=== PATIENT | male | born 1930 | race Hispanic/Latino ===

== ENCOUNTER 2017-11-23 20:34 | Emergency (ER) | payer MEDICARE, BC, OTHER ==
[2017-11-23 20:34] VITALS: PULSE 141
[2017-11-23 20:46] VITALS: BMI 33.0
[2017-11-23 20:49] VITALS: RESP 18
[2017-11-23 21:02] VITALS: TEMP 98.1
--- NOTE | 2017-11-23 22:17 | ED PDOC ---
Arrival/HPI <Je Catalan - Last Filed: 11/23/17 22:56> - General Historian: Patient, Family <Penny Samano - Last Filed: 11/24/17 01:40> - General Chief Complaint: Lower Extremity Problem/Injury Time Seen by Provider: 11/23/17 20:45 - History of Present Illness Narrative History of Present Illness (Text): 11/23/17 22:12 87yo male with past medical history of hypertension, Diabetes, CAD, BPH bib family members for sharp right sided lower back pain x one week. The son states pain became increasingly worse. Pain is described as intermittent and spasms. Pain radiates to his posterior right thigh. Notes that he has been taking Tylenol for the pain with some relieve. Pain is worse with movement. States he has been ambulating with a cane, since the pain started. He denies abdominal pain ripping/tearing upper back pain, urinary/fecal incontinence, saddle anesthesia, focal weakness, urinary symptoms. (Penny Samano A) Past Medical History - Provider Review Nursing Documentation Reviewed: Yes - Cardiac Hx HI: Yes Hx Hypertension: Yes Hx Pacemaker: No Other/Comment: aortic anuerysm - Neurological Hx Paralysis: No - Endocrine/Metabolic Hx Endocrine Disorders: Yes Other/Comment: Borderline Diabetes - Hematological/Oncological Hx Blood Transfusions: No Hx Blood Transfusion Reaction: No - Musculoskeletal/Rheumatological Hx Musculoskeletal Disorders: Yes ( OSTEO LEFT ANKLE YEARS AGO) Hx Osteomyelitis: Yes (L ankle) - Psychiatric Hx Emotional Abuse: No Hx Physical Abuse: No Hx Substance Use: No - Surgical History Hx Orthopedic Surgery: Yes Other/Comment: Al in one of the hips, unsure which one. - Anesthesia Hx Anesthesia: Yes Hx Anesthesia Reactions: No Hx Malignant Hyperthermia: No - Suicidal Assessment Feels Threatened In Home Enviroment: No <Penny Samano A - Last Filed: 11/24/17 01:40> Family/Social History - Physician Review Nursing Documentation Reviewed: Yes Family/Social History: Unknown Family HX Smoking Status: Former Smoker Hx Alcohol Use: No Hx Substance Use: No <Penny Samano A - Last Filed: 11/24/17 01:40> Allergies/Home Meds <Je Catalan - Last Filed: 11/23/17 22:56> <Penny Samano A - Last Filed: 11/24/17 01:40> Allergies/Adverse Reactions: Allergies No Known Allergies Allergy (Verified 11/23/17 20:53) Home Medications: Home Meds Medication Instructions Recorded Confirmed Aspirin [Aspir 81] 81 mg PO DAILY 05/25/12 11/23/17 Atorvastatin Calcium [Lipitor] 10 mg PO DAILY 05/25/12 11/23/17 Bumetanide [Bumex] 1 mg PO DAILY 05/25/12 11/23/17 Metoprolol Succinate [Toprol XL] 100 mg PO DAILY 05/25/12 11/23/17 ALPRAZolam [Xanax] 0.25 mg PO PRN PRN 11/23/17 11/23/17 Olmesartan Medoxomil [Benicar] 40 mg PO DAILY 11/23/17 11/23/17 Qlohy-0-Avwr Ethyl Esters 1 GM 1 gm PO BID 11/23/17 11/23/17 [Lovaza] SITagliptin [Januvia] 50 mg PO DAILY 11/23/17 11/23/17 Tamsulosin [Flomax] 0.4 mg PO DAILY 11/23/17 11/23/17 Vit C/E/Zn/Coppr/Lutein/Zeaxan 1 each PO DAILY 11/23/17 11/23/17 [Preservision Areds 2 Softgel] amLODIPine [Norvasc] 5 mg PO DAILY 11/23/17 11/23/17 Review of Systems - Physician Review All systems were reviewed & negative as marked: Yes - Review of Systems Constitutional: Normal Eyes: Normal ENT: Normal Respiratory: Normal Cardiovascular: Normal Gastrointestinal: Normal Genitourinary Male: Normal Musculoskeletal: Back Pain Skin: Normal Neurological: Normal Endocrine: Normal Hemo/Lymphatic: Normal Psychiatric: Normal <Diru,Happiness A - Last Filed: 11/24/17 01:40> Physical Exam Vital Signs Reviewed: Yes Temperature: Afebrile Blood Pressure: Normal Pulse: Regular Respiratory Rate: Normal Appearance: Positive for: Well-Appearing, Non-Toxic, Comfortable Pain Distress: None Mental Status: Positive for: Alert and Oriented X 3 - Systems Exam Head: Present: Atraumatic, Normocephalic Pupils: Present: PERRL Extroacular Muscles: Present: EOMI Conjunctiva: Present: Normal Mouth: Present: Moist Mucous Membranes Neck: Present: Normal Range of Motion Respiratory/Chest: Present: Clear to Auscultation, Good Air Exchange. No: Respiratory Distress, Accessory Muscle Use Cardiovascular: Present: Regular Rate and Rhythm, Normal S1, S2. No: Murmurs Abdomen: No: Tenderness, Distention, Peritoneal Signs Back: Present: Paraspinal Tenderness (Right sided paralumbar tenderness). No: Midline Tenderness, Pain with Leg Raise Upper Extremity: Present: Normal Inspection. No: Cyanosis, Edema Lower Extremity: Present: Normal Inspection. No: Edema Neurological: Present: GCS=15, CN II-XII Intact, Speech Normal Skin: Present: Warm, Dry, Normal Color. No: Rashes Psychiatric: Present: Alert, Oriented x 3, Normal Insight, Normal Concentration <Penny Samano A - Last Filed: 11/24/17 01:40> Vital Signs Temp Pulse Resp BP Pulse Ox 11/23/17 23:51 78 18 142/89 100 11/23/17 20:57 98.1 F 11/23/17 20:46 73 18 165/73 H 97 Medical Decision Making <Je Catalan - Last Filed: 11/23/17 22:56> <JazmyneHappiness A - Last Filed: 11/24/17 01:40> ED Course and Treatment: 11/24/17 01:39 PT was neurologically intact in Emergency department. His pain imrpoved in Emergency department with medication. His pain was reproducible in Emergency department. Urinalysis was negative. LS CT IMPRESSION: 1. There is slight retrolisthesis of L2 on L3. There is no acute fracture within the lumbar spine. 2. Degenerative changes are identified diffusely within the lumbar and visualized lower thoracic spine, as described above. 3. There is moderate narrowing of the thecal sac at L2-3, with mild narrowing of the thecal sac at L3-4. There is minimal narrowing of the ventral thecal sac at L5-S1. These findings can be further evaluated with a nonemergent MRI. 4. Neural foraminal narrowing is identified diffusely within the lumbar spine , as detailed above. 5. There are areas of aneurysmal dilatation of the infrarenal abdominal aorta , with a maximal diameter of 3.8 cm. 6. The bladder is incompletely visualized, but appears distended. Clinical correlation is recommended. 7. Additional CT findings described above. Result was DW both patient and the family members. He leaves with his family members. He was DC home with Tramadol, lidoderm patch and valium and referred to his PMD. (Penny Samano) - Lab Interpretations Lab Results: Lab Results 11/23/17 22:45: Urine Color Yellow, Urine Appearance Clear, Urine pH 6.0, Ur Specific [place] 1.010, Urine Protein Negative, Urine Glucose (UA) Negative, Urine Ketones Negative, Urine Blood Negative, Urine Nitrate Negative, Urine Bilirubin Negative, Urine Urobilinogen 0.2, Ur Leukocyte Esterase Negative - RAD Interpretation Radiology Orders: 11/23/17 21:14 LUMBAR SPINE W/O CONTRAST [CT] Stat - Medication Orders Current Medication Orders: Discontinued Medications Diazepam (Valium) 2 mg PO ONCE ONE PRN Reason: Protocol Stop: 11/23/17 21:17 Last Admin: 11/23/17 21:22 Dose: 2 mg Oxycodone/Acetaminophen (Percocet 5/325 Mg Tab) 1 tab PO STAT STA Stop: 11/23/17 22:33 Last Admin: 11/23/17 22:38 Dose: 1 tab MAR Pain Assessment Document 11/23/17 22:38 CNR (Rec: 11/23/17 22:38 C[address] [id number]) Pain Reassessment Is this a pain reassessment? Yes - PA / HAND OR MACHINE PASTER / Resident Statement / has reviewed & agrees with the documentation as recorded. / has examined the patient and agrees with the treatment plan. <Je Catalan - Last Filed: 11/23/17 22:56> Disposition/Present on Arrival <Je Catalan - Last Filed: 11/23/17 22:56> - Present on Arrival Any Indicators Present on Arrival: No History of DVT/PE: No History of Uncontrolled Diabetes: No Urinary Catheter: No History of Decub. Ulcer: No History Surgical Site Infection Following: None - Disposition Have Diagnosis and Disposition been Completed?: Yes Disposition Time: 23:20 Patient Plan: Discharge <Penny Samano - Last Filed: 11/24/17 01:40> - Disposition Diagnosis: Back pain, Radiculopathy Disposition: HOME/ ROUTINE Condition: STABLE Discharge Instructions (ExitCare): Radiculopathy (DC) Additional Instructions: Follow up with your doctor Return to Emergency department for any new symptoms Prescriptions: diaZEpam [Valium] 2 mg PO DAILY #6 tab Lidocaine 5% [Lidoderm] 1 ea TD BID #10 patch traMADol [Ultram] 50 mg PO TID #10 tab Referrals: Prashant Bull DO [Primary Care Provider] - Follow up with primary Forms: [employer] ([place]oz[place]ican)
--- NOTE | 2017-11-23 22:24 | CT ---
EXAM: CT Lumbar Spine Without Intravenous Contrast EXAM DATE/TIME: 11/23/2017 9:14 PM CLINICAL HISTORY: The patient age is 87 years old and is male; Pain; Low back pain; Additional info: Lower back pain Facility exam id and description: Ct lumbs lumbar spine w/o contrast TECHNIQUE: Axial computed tomography images of the lumbar spine without intravenous contrast. All CT scans at this facility use one or more dose reduction techniques, viz.: automated exposure control; ma/kV adjustment per patient size (including targeted exams where dose is matched to indication; i.e. head); or iterative reconstruction technique. Coronal and sagittal reformatted images were created and reviewed. COMPARISON: No relevant prior studies available. FINDINGS: Vertebrae: There is slight retrolisthesis of L2 on L3. Osteopenia. There is no acute fracture within the lumbar spine. The lumbar vertebral bodies are normal in height. There is no significant scoliosis of the lumbar spine. Discs/spinal canal/neural foramina: Degenerative disc bulge/osteophyte complexes are identified diffusely within the lumbar and visualized lower thoracic spine. Flowing osteophytes or ankylosis is seen within the lower thoracic spine anteriorly. At L1-2, there is no significant narrowing of the thecal sac. Moderate right and mild left neural foraminal narrowing is visualized. At L2-3, there is moderate narrowing of the thecal sac. Moderate bilateral neural foramina is identified. At L3-4, there is mild narrowing of the thecal sac. Mild bilateral neural foraminal narrowing is identified. There is bilateral facet arthropathy. At L4-5, there is bilateral facet arthropathy with mild disc bulging. There is effacement of the anterior epidural fat, without significant narrowing of the thecal sac. There is narrowing of both lateral recesses. Moderate right and mild left neural foraminal narrowing is visualized. At L5-S1, there is bilateral facet arthropathy with a posterior disc bulge/osteophyte complex causing effacement of the anterior epidural fat and minimal narrowing of the ventral thecal sac. There is narrowing of both lateral raise recesses. Moderate bilateral neural foramina is identified. Vasculature: There are areas of aneurysmal dilatation of the infrarenal abdominal aorta, with a maximal diameter of 3.8 cm. There is atherosclerotic calcification of the abdominal aorta. Spleen: There is a 1.7 x 0.8 cm nonspecific focus of hypodensity posterior to the spleen. A splenule is seen. Adrenals: There is nonspecific thickening of the left adrenal gland. Stomach and bowel: Sigmoid diverticula are visualized. Bladder: The bladder is incompletely visualized, but appears distended. IMPRESSION: 1. There is slight retrolisthesis of L2 on L3. There is no acute fracture within the lumbar spine. 2. Degenerative changes are identified diffusely within the lumbar and visualized lower thoracic spine, as described above. 3. There is moderate narrowing of the thecal sac at L2-3, with mild narrowing of the thecal sac at L3-4. There is minimal narrowing of the ventral thecal sac at L5-S1. These findings can be further evaluated with a nonemergent MRI. 4. Neural foraminal narrowing is identified diffusely within the lumbar spine, as detailed above. 5. There are areas of aneurysmal dilatation of the infrarenal abdominal aorta, with a maximal diameter of 3.8 cm. 6. The bladder is incompletely visualized, but appears distended. Clinical correlation is recommended. 7. Additional CT findings described above.
[2017-11-23] MEDS: Oxycodone/Acetaminophen 5/325 mg Tab PO STA (22:38)
[2017-11-23 22:57] LABS: URINE BILIRUBIN NEGATIVE (NEGATIVE); URINE BLOOD NEGATIVE (NEGATIVE); URINE GLUCOSE (UA) NEGATIVE (NEGATIVE); URINE LEUKOCYTE ESTERASE NEGATIVE Leu/uL (NEGATIVE); URINE PROTEIN NEGATIVE mg/dL (<30 mg/dL); URINE UROBILINOGEN 0.2 E.U./dL (<1 E.U./dL)
[2017-11-23 23:05] LABS: URINE APPEARANCE CLEAR (CLEAR); URINE COLOR YELLOW (YELLOW)
[2017-11-23 23:53] VITALS: BP 142/89; PULSE 78; O2SAT 100
== END 2017-11-23 23:51 | disposition home or self-care (01) ==
LOC: ED 20:34
DX: M54.16 Radiculopathy, lumbar region (principal); M54.5 Low back pain

== ENCOUNTER 2018-03-31 07:16 | Emergency (ER) | payer MEDICARE, BC ==
[2018-03-31 07:16] VITALS: PULSE 141; BMI 33.0
[2018-03-31] MEDS ORDERED: Sodium Chloride 0.9% 500 ML IV SCH (07:45)
[2018-03-31] MEDS ORDERED: Famotidine 20mg/50ml 20 MG/50 ML BAG IVPB STA (07:45)
[2018-03-31 07:51] LABS: BASO # 0.02 K/mm3 (0.0-2.0); BASO % 0.4 % (0.0-3.0); EOS # 0.1 (0.0-0.7); EOS % 2.4 % (1.5-5.0); GRAN # 3.61 (1.4-6.5); GRAN % 72.5 % (50.0-68.0); HEMOGLOBIN 14.3 g/dL (14.0-18.0); LYMPH # 0.9 (1.2-3.4); LYMPH % 18.1 % (22.0-35.0); MEAN CELL VOLUME 91.2 fl (80.0-105.0); MEAN CORPUSCULAR HEMOGLOBIN 30.7 pg (25.0-35.0); MEAN CORPUSCULAR HGB CONC 33.6 g/dl (31.0-37.0); MONO # 0.3 (0.1-0.6); MONO % 6.6 % (1.0-6.0); RBC 4.66 10^6/uL (3.5-6.1); RED CELL DISTRIBUTION WIDTH 13.6 % (11.5-14.5)
[2018-03-31 08:00] LABS: INR 1.02; PARTIAL THROMBOPLASTIN TIME 27.8 Seconds (25.1-36.5); PROTHROMBIN TIME 11.7 SECONDS (9.4-12.5)
[2018-03-31 08:01] LABS: CALCIUM 9.5 mg/dL (8.4-10.5)
[2018-03-31 08:12] LABS: TROPONIN I 0.02 ng/mL
[2018-03-31 08:24] LABS: ALB/GLOB RATIO 1.3 (1.1-1.8); BILIRUBIN,DIRECT 0.2 mg/dL (0.0-0.4)
--- NOTE | 2018-03-31 08:24 | ED PDOC ---
Arrival/HPI - General Chief Complaint: Abdominal Pain Time Seen by Provider: 03/31/18 07:23 Historian: Patient, Parent (Daughters) - Critical Care Critical Care Minutes: 30 minutes - History of Present Illness Narrative History of Present Illness (Text): 03/31/18 08:08 88 year old male, whose past medical history includes hypertension, Diabetes, CAD, GERD, and Abdominal Aortic Aneurysm, presents to the emergency department, accompanied by daughters, with chest discomfort, for more than 1 hour. Patient states its feels like "a knot in my stomach". Patient informs of associated shortness of breath. Patient also informs of some mid-sternal chest discomfort, without any radiation, and lightheadedness. Patient's daughters inform of his AAA, stating it is being monitored, but no plans of surgical repair due to age. Patient denies any fevers, chills, cough, nausea, vomiting, diarrhea, or any other complaint. PMD: Dr. Prashant Bull Holiday Detector Operator: Dr. Eleanor Valencia ([place]) Time/Duration: 1-3 hours Context: Home Past Medical History - Provider Review Nursing Documentation Reviewed: Yes - Infectious Disease Hx of Infectious Diseases: None - Cardiac Hx VA: Yes Hx Hypertension: Yes Hx Pacemaker: No Other/Comment: aortic anuerysm - Neurological Hx Paralysis: No - Endocrine/Metabolic Hx Endocrine Disorders: Yes Other/Comment: Borderline Diabetes - Hematological/Oncological Hx Blood Transfusions: No Hx Blood Transfusion Reaction: No - Musculoskeletal/Rheumatological Hx Musculoskeletal Disorders: Yes ( OSTEO LEFT ANKLE YEARS AGO) Hx Osteomyelitis: Yes (L ankle) - Psychiatric Hx Emotional Abuse: No Hx Physical Abuse: No Hx Substance Use: No - Surgical History Hx Orthopedic Surgery: Yes Other/Comment: Al in one of the hips, unsure which one. - Anesthesia Hx Anesthesia: Yes Hx Anesthesia Reactions: No Hx Malignant Hyperthermia: No - Suicidal Assessment Feels Threatened In Home Enviroment: No Family/Social History - Physician Review Nursing Documentation Reviewed: Yes Family/Social History: No Known Family HX Smoking Status: Former Smoker Hx Alcohol Use: No Hx Substance Use: No Allergies/Home Meds Allergies/Adverse Reactions: Allergies No Known Allergies Allergy (Verified 11/23/17 20:53) Home Medications: Home Meds Medication Instructions Recorded Confirmed Aspirin [Aspir 81] 81 mg PO DAILY 05/25/12 11/23/17 Atorvastatin Calcium [Lipitor] 10 mg PO DAILY 05/25/12 11/23/17 Bumetanide [Bumex] 1 mg PO DAILY 05/25/12 11/23/17 Metoprolol Succinate XL [Toprol XL] 100 mg PO DAILY 05/25/12 11/23/17 ALPRAZolam [Xanax] 0.25 mg PO PRN PRN 11/23/17 11/23/17 Olmesartan Medoxomil [Benicar] 40 mg PO DAILY 11/23/17 11/23/17 Zcaxv-0-Ciyc Ethyl Esters 1 GM 1 gm PO BID 11/23/17 11/23/17 [Lovaza] SITagliptin [Januvia] 50 mg PO DAILY 11/23/17 11/23/17 Tamsulosin [Flomax] 0.4 mg PO DAILY 11/23/17 11/23/17 Vit C/E/Zn/Coppr/Lutein/Zeaxan 1 each PO DAILY 11/23/17 11/23/17 [Preservision Areds 2 Softgel] amLODIPine [Norvasc] 5 mg PO DAILY 11/23/17 11/23/17 Review of Systems - Physician Review All systems were reviewed & negative as marked: Yes - Review of Systems Constitutional: absent: Fevers, Night Sweats Respiratory: absent: Cough Cardiovascular: Chest Pain Gastrointestinal: Abdominal Pain. absent: Diarrhea, Nausea, Vomiting Neurological: Dizziness Physical Exam Vital Signs Reviewed: Yes Vital Signs Temp Pulse Resp BP Pulse Ox 03/31/18 07:30 97.5 F L 113 H 20 141/99 H 97 Temperature: Hypothermic Blood Pressure: Hypertensive Pulse: Tachycardic Respiratory Rate: Normal Appearance: Positive for: Well-Appearing, Non-Toxic, Comfortable Pain Distress: None Mental Status: Positive for: Alert and Oriented X 3 - Systems Exam Respiratory/Chest: Present: Clear to Auscultation Cardiovascular: Present: Tachycardic Abdomen: No: Tenderness Lower Extremity: Present: Edema Medical Decision Making ED Course and Treatment: 03/31/18 08:29 Impression: 88 year old male presents with chest discomfort. Differential Diagnosis included but are not limited to: Abdominal Aortic Aneurysm Dissection Gastritis Hiatal Hernia Atypical Acute Coronary Syndrome Plan: -- EKG -- Chest X-ray -- Pepcid -- Labs -- CTA disection protocool -- Urinalysis -- Reassess and disposition Prior Visits: Notes and results from previous visits were reviewed. Progress Notes: Previous radiology reports, performed at [facility]: US of abdominal Aorta on 11/04/17, shows: Limited examination. 3.4 cm distal abdominal aortic aneurysm. US of Urinary Bladder on 08/15/17, shows: 113 cc postvoid jets were not well visualized. Clinical correlation. Aneurysmal dilation of the mid abdominal aorta which appears increased in size since the prior study. Clinical correlation. Transthoracic Echocardiogram on 11/04/17, shows: 1. Normal LV systolic function. 2. LVH with diastolic dysfunction. 3. Normal chamber size. 4. Moderate TR. 03/31/18 10:10 CTA reviewed by radiologist, shows: Two regions of thrombosed short-segment dissections evident with displaced calcified intima. Infrarenal abdominal aortic aneurysm. Large hiatal hernia with herniation of the stomach above the diaphragm. 0.8 x 2.0 cm posterior fat containing exophytic lesion splenic-possibly lipoma or angiomyolipoma of the spleen. High-density material within the gallbladder, possibly stones or sludge. Numerous thyroid hypodense nodules Additional findings as above. 03/31/18 10:16 Chest X-ray reviewed by radiologist, shows: No active disease. 03/31/18 11:03 Case was discussed with Dr. Bermudez, vascular surgeon programmer analyst consultant at [facility]. Reviewed in detail CT results with Dr. Bermudez who believes perhaps this is a chronic finding of an aortic dissection/aneursym. He accepts patient. Dr. Lewis is covering for patient's technical sales consultant Dr. Valencia, who agrees with plan of transfer. Discussed with family plan of transfer, and transfer form completed. Patient is currently asymptomatic 03/31/18 11:[address] Nikko Mata, ED Physician at [facility] who received ED to ED hand-off. A copy of the CD was requested and will be prepared for transfer. - Lab Interpretations Lab Results: 03/31/18 07:28 03/31/18 07:28 Lab Results 03/31/18 07:28: PT 11.7, INR 1.02, APTT 27.8, D-Dimer, Quantitative 414 H 03/31/18 07:28: Sodium 142, Potassium 3.7, Chloride 99, Carbon Dioxide 35 H, Anion Gap 12, BUN 29 H, Creatinine 1.4, Est GFR ( Amer) 58, Est GFR (Non- Af Amer) 48, Random Glucose 256 H, Calcium 9.5, Magnesium 1.8, Lactate Dehydrogenase 575, Total Creatine Kinase 53, Troponin I Pending, NT-Pro-B Natriuret Pep Pending 03/31/18 07:28: WBC 5.0, RBC 4.66, Hgb 14.3, Hct 42.5, MCV 91.2, MCH 30.7, MCHC 33.6, RDW 13.6, Plt Count 144, MPV 10.0, Gran % 72.5 H, Lymph % (Auto) 18.1 L, [place] % (Auto) 6.6 H, Eos % (Auto) 2.4, Baso % (Auto) 0.4, Gran # 3.61, Lymph # (Auto) 0.9 L, [place] # (Auto) 0.3, Eos # (Auto) 0.1, Baso # (Auto) 0.02 - RAD Interpretation Radiology Orders: 03/31/18 07:44 CHEST PORTABLE [RAD] Stat 03/31/18 07:46 ANGIOGRAPHY DISECTION PROTOCOL [CT] Stat - Medication Orders Current Medication Orders: Famotidine (Pepcid 20mg/50ml Premix) 20 mg in 50 mls @ 100 mls/hr IVPB STAT STA Stop: 03/31/18 08:14 Sodium Chloride (Sodium Chloride 0.9%) 500 mls @ 100 mls/hr IV .Q5H MARY - Scribe Statement The provider has reviewed the documentation as recorded by the Adin Davis Provider Scribe Attestation: All medical record entries made by the Braulioibchar were at my direction and personally dictated by me. I have reviewed the chart and agree that the record accurately reflects my personal performance of the history, physical exam, medical decision making, and the department course for this patient. I have also personally directed, reviewed, and agree with the discharge instructions and disposition. Disposition/Present on Arrival - Present on Arrival Any Indicators Present on Arrival: No History of DVT/PE: No History of Uncontrolled Diabetes: No Urinary Catheter: No History of Decub. Ulcer: No History Surgical Site Infection Following: None - Disposition Have Diagnosis and Disposition been Completed?: Yes Diagnosis: Abdominal aortic aneurysm dissection Disposition: Transfer [facility] Disposition Time: 11:33 Condition: GUARDED Forms: [employer] (B[place]raini)
[2018-03-31 08:43] LABS: VENOUS BLOOD GAS BASE EXCESS 7.4 mmol/L (0.0-2.0); VENOUS BLOOD GAS PO2 54 mm/Hg (30-55); VENOUS BLOOD PH 7.36 (7.32-7.43)
[2018-03-31 08:53] VITALS: RESP 18
[2018-03-31 09:11] LABS: URINE BILIRUBIN NEGATIVE (NEGATIVE); URINE BLOOD NEGATIVE (NEGATIVE); URINE GLUCOSE (UA) NEGATIVE (NEGATIVE); URINE LEUKOCYTE ESTERASE NEGATIVE Leu/uL (NEGATIVE); URINE PROTEIN NEGATIVE mg/dL (<30 mg/dL); URINE UROBILINOGEN 0.2 E.U./dL (<1 E.U./dL)
[2018-03-31 09:12] LABS: URINE APPEARANCE CLEAR (CLEAR); URINE COLOR YELLOW (YELLOW)
--- NOTE | 2018-03-31 10:07 | CT ---
Angiography dissection protocol Indication: Abdominal pain, history of abdominal aneurysm Comparison: Lumbar spine CT without contrast performed 11/23/17 Technique: Contrast dose: 150 mL Omnipaque 350 Total exam DLP: 1757.52 Axial computed tomographic angiogram images of the chest and abdomen were performed after bolus administration of intravenous contrast. Sagittal coronal reformatted images were generated and reviewed. This CT exam was performed using 1 or more of the falling dose reduction techniques: Automated exposure control, adjustment of the MAA and/or kV according to patient size, and/or use of iterative reconstruction technique. Findings: Included inferior thyroid gland appears heterogeneous with numerous hypodense nodules bilaterally. Mediastinal or and hilar vascular structures appear unremarkable. No large central or segmental pulmonary embolus. Thoracic aorta within normal limits of caliber without evidence of aneurysm or dissection. Atherosclerotic calcifications of the aorta are evident. Medial left lower lobe coarse calcifications in region of scarring/consolidation. No focal consolidation. No pleural effusion. No pneumothorax. Herniation of the stomach above the diaphragm into large hiatal hernia. 1.9 x 2.1 cm and 1.4 x 1.6 cm right retrocrural lymph nodes. The proximal abdominal aorta (proximal to the celiac artery origin) demonstrates a short segment thrombosed dissection with displacement of the calcified intima. More inferiorly, there it is an additional short segment thrombosed dissection with displaced calcified intima. The abdominal aorta demonstrates small to moderate peripheral plaque. Infrarenal abdominal aortic aneurysm measures approximately 4.0 x 3.3 x 6.3 cm (AP by transverse by cc); along the right aspect of this aneurysm sac is moderate peripheral plaque with narrowing of the lumen approximately 50 percent. The celiac artery origin, superior mesenteric artery origin, and inferior mesenteric artery origin appear patent. The renal artery origins appear patent. The liver appears within normal limits of size and morphology. 14 mm splenule. Diminutive kidneys with lobulated borders. Exophytic 13 mm right lower pole renal hypodensity measures approximately 6 HU, likely cyst. Nodular hypertrophy bilateral adrenal glands. Pancreatic atrophy. 0.8 x 2.0 cm posterior fat containing exophytic lesion splenic-possibly lipoma or angiomyolipoma of the spleen. High-density material within the gallbladder, possibly stones or sludge. Visualized bowel loops appear within normal limits of caliber without evidence of obstruction. The appendix appears normal. No inflammatory changes are seen in the right lower quadrant to suggest acute appendicitis. No definite free air. Distended urinary bladder limits evaluation. Numerous large coarse calcifications in the pelvis anterior to the rectum posterior to the prostate gland. The prostate gland appears heterogeneous. No significant pelvic free fluid is identified. Left hip arthroplasty. Multilevel degenerative changes of the spine and pelvis. Osseous demineralization. Impression: Two regions of thrombosed short-segment dissections evident with displaced calcified intima. Infrarenal abdominal aortic aneurysm. Large hiatal hernia with herniation of the stomach above the diaphragm. 0.8 x 2.0 cm posterior fat containing exophytic lesion splenic-possibly lipoma or angiomyolipoma of the spleen. High-density material within the gallbladder, possibly stones or sludge. Numerous thyroid hypodense nodules Additional findings as above. Findings discussed with Dr. Crow on 03/31/18 at 9:59 a.m.
--- NOTE | 2018-03-31 10:12 | RAD ---
Date of service: 03/31/2018 HISTORY: abd pain/chest pain COMPARISON: No prior. FINDINGS: LUNGS: No active pulmonary disease. PLEURA: No significant pleural effusion identified, no pneumothorax apparent. CARDIOVASCULAR: Minimal aortic calcification Mild cardiomegaly OSSEOUS STRUCTURES: No significant abnormalities. VISUALIZED UPPER ABDOMEN: Hiatal hernia OTHER FINDINGS: None. IMPRESSION: No active disease.
[2018-03-31 11:51] VITALS: BP 135/89; PULSE 105; TEMP 97.6; O2SAT 95
--- NOTE | 2018-03-31 17:11 | CARD ---
APPROVED REPORT Date of service: 03/31/2018 EKG Measurement Heart [id number] <Conclusion> Sinus rhythm with occasional premature ventricular complexes Right bundle branch block Nonspecific ST changes Abnormal ECG
== END 2018-03-31 12:10 | disposition short-term general hospital (02) ==
LOC: ED 07:16
DX: I71.02 Dissection of abdominal aorta (principal); E11.9 Type 2 diabetes mellitus without complications; I10 Essential (primary) hypertension; I25.10 Atherosclerotic heart disease of native coronary artery without angina pectoris; Z87.891 Personal history of nicotine dependence; I25.2 Old myocardial infarction
CPT/HCPCS: 71045; 71275; 74175; 80048; 80076; 81003; 82550; 82803; 83615; 83690; 83735; 83880; 84484; 85025; 85378; 85610; 85730; 86850; 86900; 93005; 96361; 96365; 99291; J7040; Q9967

== ENCOUNTER 2018-06-02 15:02 | Observation (INO) | payer MEDICARE, BC ==
[2018-06-02 15:02] VITALS: PULSE 141
--- NOTE | 2018-06-02 15:44 | ED PDOC ---
Arrival/HPI - General Chief Complaint: GI Problem Time Seen by Provider: 06/02/18 15:03 Historian: Patient, Family - History of Present Illness Narrative History of Present Illness (Text): 06/02/18 16:01 88yo male with pmhx of hypertension, Diabetes, anxiety who was referred to ED by Dr. Bull for having black stool x once today and vomited once yesterday. He however denies any abdominal pain, chest pain, SOB, diaphoresis, fever,chills, back pain, urinary symptoms, hematuria, hematochezia, ripping/tearing upper back pain, dizziness, any other complaint. the daughter's by the bedside notes that he has been on Augmentin now for 3days for Otitis media. Past Medical History - Provider Review Nursing Documentation Reviewed: Yes - Infectious Disease Hx of Infectious Diseases: None - Cardiac Hx MO: Yes Hx Hypertension: Yes Hx Pacemaker: No Other/Comment: aortic anuerysm - Neurological Hx Paralysis: No - Endocrine/Metabolic Hx Endocrine Disorders: Yes Other/Comment: Borderline Diabetes - Hematological/Oncological Hx Blood Transfusions: No Hx Blood Transfusion Reaction: No - Musculoskeletal/Rheumatological Hx Musculoskeletal Disorders: Yes ( OSTEO LEFT ANKLE YEARS AGO) Hx Osteomyelitis: Yes (L ankle) - Psychiatric Hx Emotional Abuse: No Hx Physical Abuse: No Hx Substance Use: No - Surgical History Hx Orthopedic Surgery: Yes Other/Comment: Al in one of the hips, unsure which one. - Anesthesia Hx Anesthesia: Yes Hx Anesthesia Reactions: No Hx Malignant Hyperthermia: No - Suicidal Assessment Feels Threatened In Home Enviroment: No Family/Social History - Physician Review Nursing Documentation Reviewed: Yes Family/Social History: Unknown Family HX Smoking Status: Former Smoker Hx Alcohol Use: No Hx Substance Use: No Allergies/Home Meds Allergies/Adverse Reactions: Allergies No Known Allergies Allergy (Verified 11/23/17 20:53) Home Medications: Home Meds Medication Instructions Recorded Confirmed Aspirin [Aspir 81] 81 mg PO DAILY 05/25/12 11/23/17 Atorvastatin Calcium [Lipitor] 10 mg PO DAILY 05/25/12 11/23/17 Bumetanide [Bumex] 1 mg PO DAILY 05/25/12 11/23/17 Metoprolol Succinate XL [Toprol XL] 100 mg PO DAILY 05/25/12 11/23/17 ALPRAZolam [Xanax] 0.25 mg PO PRN PRN 11/23/17 11/23/17 Olmesartan Medoxomil [Benicar] 40 mg PO DAILY 11/23/17 11/23/17 Pupso-9-Fdei Ethyl Esters 1 GM 1 gm PO BID 11/23/17 11/23/17 [Lovaza] SITagliptin [Januvia] 50 mg PO DAILY 11/23/17 11/23/17 Tamsulosin [Flomax] 0.4 mg PO DAILY 11/23/17 11/23/17 Vit C/E/Zn/Coppr/Lutein/Zeaxan 1 each PO DAILY 11/23/17 11/23/17 [Preservision Areds 2 Softgel] amLODIPine [Norvasc] 5 mg PO DAILY 11/23/17 11/23/17 Review of Systems - Physician Review All systems were reviewed & negative as marked: Yes - Review of Systems Constitutional: Normal Eyes: Normal ENT: Normal Respiratory: Normal Cardiovascular: Normal Gastrointestinal: Stool Changes (Melena), Vomiting Genitourinary Male: Normal Musculoskeletal: Normal Skin: Normal Neurological: Normal Endocrine: Normal Hemo/Lymphatic: Normal Psychiatric: Normal Physical Exam Vital Signs Reviewed: Yes Vital Signs Temp Pulse Resp BP Pulse Ox 06/02/18 15:30 98.2 F 75 18 167/98 H 96 06/02/18 15:03 98.5 F 71 18 179/80 H 95 Temperature: Afebrile Blood Pressure: Normal Pulse: Regular Respiratory Rate: Normal Appearance: Positive for: Well-Appearing, Non-Toxic, Comfortable Pain Distress: None Mental Status: Positive for: Alert and Oriented X 3 - Systems Exam Head: Present: Atraumatic, Normocephalic Pupils: Present: PERRL Extroacular Muscles: Present: EOMI Conjunctiva: Present: Normal Mouth: Present: Moist Mucous Membranes Neck: Present: Normal Range of Motion Respiratory/Chest: Present: Clear to Auscultation, Good Air Exchange. No: Respiratory Distress, Accessory Muscle Use Cardiovascular: Present: Regular Rate and Rhythm, Normal S1, S2. No: Murmurs Abdomen: Present: Normal Bowel Sounds, Other (Soft). No: Tenderness, Distention, Peritoneal Signs, Rebound, Guarding, McBurney's Point Tender, Rovsing's Sign Present Back: Present: Normal Inspection Upper Extremity: Present: Normal Inspection. No: Cyanosis, Edema Lower Extremity: Present: Normal Inspection. No: Edema Neurological: Present: GCS=15, CN II-XII Intact, Speech Normal Skin: Present: Warm, Dry, Normal Color. No: Rashes Psychiatric: Present: Alert, Oriented x 3, Normal Insight, Normal Concentration Medical Decision Making ED Course and Treatment: 06/02/18 18:22 88yo male referred to ED for having black stool today and vomiting yesterday. Labs EKG CXR Protonix, 1L NS Pt's Guaic was positive. 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 Labs was reviewed with hgb of 12.9 noted showing a mild decrease from his hgb >13 last week. Mild increase in Cr noted likely secondary to dehydration. EKG Sinus rhythm with 1st degree AV block. @ 71bpm. RBBB. N-stemi CXR pending PT will be admitted for active GI bleeding and GAMALIEL Case was DW Dr. Bull and pt was admitted to his service. He requested Dr. Galo consult All result and plan was DW both pt and the family and they agreed - Medication Orders Current Medication Orders: Discontinued Medications Ondansetron HCl (Zofran Inj) 4 mg IVP STAT STA Stop: 06/02/18 15:34 Pantoprazole Sodium (Protonix Inj) 40 mg IVP STAT STA Stop: 06/02/18 15:34 Disposition/Present on Arrival - Present on Arrival Any Indicators Present on Arrival: No History of DVT/PE: No History of Uncontrolled Diabetes: No Urinary Catheter: No History of Decub. Ulcer: No History Surgical Site Infection Following: None - Disposition Have Diagnosis and Disposition been Completed?: Yes Diagnosis: GI bleed, GAMALIEL (acute kidney injury) Disposition: HOSPITALIZED Disposition Time: 17:30 Patient Plan: Admission Patient Problems: Current Active Problems Problem Status Onset GAMALIEL (acute kidney injury) Acute GI bleed Acute Condition: FAIR
[2018-06-02 16:16] LABS: BASO # 0.01 K/mm3 (0.0-2.0); BASO % 0.2 % (0.0-3.0); EOS # 0.1 (0.0-0.7); EOS % 1.5 % (1.5-5.0); GRAN # 3.8 (1.4-6.5); GRAN % 73.1 % (50.0-68.0); HEMOGLOBIN 12.9 g/dL (14.0-18.0); LYMPH # 0.9 (1.2-3.4); LYMPH % 18.1 % (22.0-35.0); MEAN CELL VOLUME 90.7 fl (80.0-105.0); MEAN CORPUSCULAR HEMOGLOBIN 30.9 pg (25.0-35.0); MEAN PLATELET VOLUME 9.8 fl (7.0-11.0); MONO # 0.4 (0.1-0.6); MONO % 7.1 % (1.0-6.0); RBC 4.18 10^6/uL (3.5-6.1); RED CELL DISTRIBUTION WIDTH 13.6 % (11.5-14.5); WHITE BLOOD COUNT 5.2 10^3/uL (4.5-11.0)
[2018-06-02 16:28] LABS: INR 1.03; PARTIAL THROMBOPLASTIN TIME 23.8 Seconds (25.1-36.5); PROTHROMBIN TIME 11.8 SECONDS (9.4-12.5)
[2018-06-02 17:05] LABS: URINE APPEARANCE CLEAR (CLEAR); URINE BILIRUBIN NEGATIVE (NEGATIVE); URINE BLOOD NEGATIVE (NEGATIVE); URINE COLOR LIGHT YELLOW (YELLOW); URINE GLUCOSE (UA) NEGATIVE (NEGATIVE); URINE LEUKOCYTE ESTERASE NEGATIVE Leu/uL (NEGATIVE); URINE PROTEIN NEGATIVE mg/dL (<30 mg/dL); URINE UROBILINOGEN 0.2 E.U./dL (<1 E.U./dL)
[2018-06-02 17:11] LABS: ALBUMIN 3.9 g/dL (3.0-4.8); CALCIUM 9.3 mg/dL (8.4-10.5)
[2018-06-02 17:12] LABS: ALB/GLOB RATIO 1.3 (1.1-1.8)
[2018-06-02 17:25] LABS: TROPONIN I 0.02 ng/mL
[2018-06-02] MEDS ORDERED: Sodium Chloride 0.9% 1,000 ML IV STA (17:33)
[2018-06-02 19:55] LABS: HEMOGLOBIN 13.4 g/dL (14.0-18.0); MEAN CELL VOLUME 90.7 fl (80.0-105.0); MEAN CORPUSCULAR HEMOGLOBIN 30.5 pg (25.0-35.0); MEAN CORPUSCULAR HGB CONC 33.7 g/dl (31.0-37.0); MEAN PLATELET VOLUME 9.3 fl (7.0-11.0); RBC 4.39 10^6/uL (3.5-6.1); RED CELL DISTRIBUTION WIDTH 13.4 % (11.5-14.5); WHITE BLOOD COUNT 5.5 10^3/uL (4.5-11.0)
[2018-06-02 20:18] LABS: CALCIUM 9.4 mg/dL (8.4-10.5)
[2018-06-02 20:50] VITALS: BMI 34.7
[2018-06-02] MEDS: Sodium Chloride 0.45% 1,000 ML IV SCH (21:30)
--- NOTE | 2018-06-02 22:20 | HP ---
DATE OF EXAM: 06/02/2018 HISTORY OF PRESENT ILLNESS: Joseph came to the emergency room, having black stools. He is an 88-year-old man with a past medical history of hypertension, diabetes, and anxiety. He called me this morning saying he had black stools, tarry. He had once also vomited. He was started on Augmentin 2-3 days ago. He had no abdominal pain. No chest pain or shortness of breath. No diaphoresis, just black stool one time. He did not have any aspirin products. No Pepto-Bismol and he only takes a baby aspirin a day. PAST MEDICAL HISTORY: He has a history of an AR, hypertension, aortic aneurysm, and borderline diabetes. He had osteomyelitis of the left ankle many years ago. He has a walt on one of his hips, not sure which one. FAMILY HISTORY: Unknown family history. SOCIAL HISTORY: Former smoker. No alcohol. No drugs. ALLERGIES: NO KNOWN DRUG ALLERGIES. MEDICATIONS: He is on aspirin, which will hold, Lipitor which will hold, Bumex, Toprol, Xanax, Benicar, omega will hold, and Januvia we are going to hold, he is on IV fluids and p.o. Flomax, vitamins, and Norvasc which we will give him. REVIEW OF SYSTEMS: He is comfortable. No acute vision or hearing changes. No sore throat. No chest pain or palpitations. No shortness of breath or cough. There are stool changes, melena. There was also vomiting, but no diarrhea. He urinates fine. Skin from what I could tell is just dry and poor turgor, but intact. PHYSICAL EXAMINATION: GENERAL: He is not anxious. He is well appearing, nontoxic, comfortable, alert and oriented x3. Family is present. VITAL SIGNS: He has a 98.2 temperature, 75 pulse, 18 respiratory rate, 167/98 blood pressure, and 96 O2 sat. I will give him his blood pressure medications to get blood pressure down. HEENT: Head is atraumatic and normocephalic. Extraocular muscles are intact. Pupils are equal and reactive to light. Throat is moist. NECK: Supple. HEART: Regular rate. Normal S1 and S2. LUNGS: Clear to auscultation bilaterally. No wheezes. No rhonchi. No rales. ABDOMEN: Soft and nontender. Positive bowel sounds. No guarding. No rebound. No CVA tenderness. EXTREMITIES: Has no edema. GCS is 15. Cranial nerves II through XII grossly intact. Speech is normal. SKIN: Warm and dry. No apparent rashes or ulcers appreciated. NEUROLOGIC: Alert and oriented x3. LYMPHS: Thyroid midline. LABORATORY DATA: He had a bunch of tests done. EKG and chest x-ray are pending. He has an urine, which was clean. He had a chemistry has 140 sodium, potassium 3.9, BUN 35, and creatinine 1.7. He is on IV fluids. GFR is 38 and sugar is 117 and on insulin coverage and Accu-Cheks. Calcium is 9.3 and total bili is 1.1. AST is 29, ALT is 26, and alk phos is 88. Lactate dehydrogenase is 539. Total creatinine kinase is 96. Troponin I is 0.02. Total protein 7.1, albumin is 3.9, and globulin 3.1. Amylase 82 and lipase 266. INR is 1.03. Hemoglobin when he came in was 5.2. Hemoglobin is 12.9, hematocrit 37.9, and platelets . About 3 hours later, white count was 5.5, hemoglobin went up to 13.4, hematocrit 39.8, and platelets 118. ASSESSMENT AND PLAN: He is going to have a consult with Gastroenterology possible endoscopy tomorrow. We will check his labs tomorrow. He will be put back on his blood pressure pills. His IV fluids running. We will check his stools for occult blood. He has Protonix running, hopefully he will be okay. We will watch him overnight and see how he does tomorrow. He is here for black tarry stools, rule out gastrointestinal bleed. He has hypertension, anxiety, and diabetes. Prashant Bull DO MTDD
[2018-06-03] MEDS: Insulin Reg-MEDIUM-Coverage SC SCH ×5 (01:22→21:28)
--- NOTE | 2018-06-03 09:06 | CP.PCM.CON ---
<MegSylvester - Last Filed: 06/03/18 09:17> History of Present Illness - History of Present Illness History of Present Illness: PGY-4 GI Fellow Consult Note Pt is an 88 yo WM with HTN, DM, CAD, Anxiety, Memory loss? presenting with dark stool. He states that he was in his normal state of health yesterday when he had one episode of a dark tarry stool. States that he normally has formed brown bowel movements. He states that he take ASA 81 mg but no other blood thinners. He denied any emesis, weight loss, dysphagia, abd pain, hematochezia or prior change in bowel habits. States that he had a CSPY about 6 yrs ago and was told he had diverticulosis. He also thinks he had an EGD "years" ago with unknown results. He called Dr. Bull who instructed him to present for evaluation. 12 point ROS negative other than stated above MHx: See above SurgHx: Hip surg Meds: Reviewed in chart FamHx: Lung CA, denied GI/CRC SocHx: Former smoker, denied etoh/ill All: NKDA Past Patient History - Infectious Disease Hx of Infectious Diseases: None - Past Social History Smoking Status: Former Smoker - CARDIAC Hx Hypertension: Yes Hx Pacemaker: No Other/Comment: aortic anuerysm - NEUROLOGICAL Hx Neurological Disorder: No - HEENT Hx HEENT Problems: No - ENDOCRINE/METABOLIC Hx Endocrine Disorders: Yes Other/Comment: Borderline Diabetes - HEMATOLOGICAL/ONCOLOGICAL Hx Blood Disorders: No - INTEGUMENTARY Hx Dermatological Problems: No - MUSCULOSKELETAL/RHEUMATOLOGICAL Hx Falls: Yes - PSYCHIATRIC Hx Substance Use: No - SURGICAL HISTORY Hx Orthopedic Surgery: Yes Other/Comment: Al in one of the hips, unsure which one. - ANESTHESIA Hx Anesthesia: Yes Hx Anesthesia Reactions: No Hx Malignant Hyperthermia: No Meds Allergies/Adverse Reactions: Allergies Allergy/AdvReac Type Severity Reaction Status Date / Time No Known Allergies Allergy Verified 11/23/17 20:53 - Medications Medications: Current Medications Alprazolam (Xanax) 0.25 mg PO DAILY PRN; Protocol PRN Reason: Anxiety Stop: 06/09/18 20:06 Amlodipine Besylate (Norvasc) 10 mg PO DAILY MARY Bumetanide (Bumex) 1 mg PO DAILY MARY Sodium Chloride (Sodium Chloride 0.45%) 1,000 mls @ 60 mls/hr IV .[id number] [facility] Last Admin: 06/02/18 21:30 Dose: 60 mls/hr Insulin Human Regular (Humulin R Med) [address] [facility]; Protocol Last Admin: 06/03/18 07:45 Dose: Not Given Losartan Potassium (Cozaar) 100 mg PO DAILY [facility] Metoprolol Succinate (Toprol Xl) 100 mg PO DAILY [facility] Pantoprazole Sodium (Protonix Inj) 40 mg IVP BID [facility] Last Admin: 06/02/18 21:30 Dose: 40 mg Tamsulosin HCl (Flomax) 0.4 mg PO DAILY [facility] Physical Exam - Constitutional Appears: Well, No Acute Distress - Head Exam Head Exam: ATRAUMATIC, NORMAL INSPECTION - Eye Exam Eye Exam: EOMI. absent: Scleral icterus - ENT Exam ENT Exam: Mucous Membranes Moist. absent: Mucous Membranes Dry - Respiratory Exam Respiratory Exam: Clear to Auscultation Bilateral. absent: Accessory Muscle Use, Respiratory Distress - Cardiovascular Exam Cardiovascular Exam: REGULAR RHYTHM, RRR - GI/Abdominal Exam GI & Abdominal Exam: Normal Bowel Sounds, Soft. absent: Bruit, Diminished Bowel Sounds, Distended, Firm, Guarding, Hernia, Mass, Organomegaly, Pulsatile Mass, Tenderness - Rectal Exam Rectal Exam: NORMAL INSPECTION Additional comments: Scant amount of brown stool on JORDAN, no obvious masses - Extremities Exam Extremities exam: Positive for: normal inspection. Negative for: pedal edema - Neurological Exam Neurological exam: Alert, CN II-XII Intact - Psychiatric Exam Psychiatric exam: Normal Affect, Normal Mood - Skin Skin Exam: Normal Color, Warm Results - Vital Signs Recent Vital Signs: Last Vital Signs Temp 97.8 F 06/03/18 05:53 Pulse 75 06/03/18 06:20 Resp 20 06/03/18 05:53 BP 184/89 H 06/03/18 06:20 Pulse Ox 94 L 06/03/18 05:53 - Labs Result Diagrams: 06/03/18 07:00 06/02/18 19:50 Labs: Laboratory Results - last 24 hr 06/02/18 06/02/18 06/02/18 16:11 16:11 16:50 WBC 5.2 RBC 4.18 Hgb 12.9 L Hct 37.9 L MCV 90.7 MCH 30.9 MCHC 34.0 RDW 13.6 Plt Count 136 MPV 9.8 Gran % 73.1 H Lymph % (Auto) 18.1 L Snyder % (Auto) 7.1 H Eos % (Auto) 1.5 Baso % (Auto) 0.2 Gran # 3.80 Lymph # (Auto) 0.9 L Snyder # (Auto) 0.4 Eos # (Auto) 0.1 Baso # (Auto) 0.01 PT 11.8 INR 1.03 APTT 23.8 L Sodium Potassium Chloride Carbon Dioxide Anion Gap BUN Creatinine Est GFR ( Amer) Est GFR (Non-Af Amer) POC Glucose (mg/dL) Random Glucose Calcium Total Bilirubin AST ALT Alkaline Phosphatase Lactate Dehydrogenase Total Creatine Kinase Troponin I Total Protein Albumin Globulin Albumin/Globulin Ratio Amylase Lipase Urine Color Light yellow Urine Appearance Clear Urine pH 6.0 Ur Specific [place] 1.010 Urine Protein Negative Urine Glucose (UA) Negative Urine Ketones Negative Urine Blood Negative Urine Nitrate Negative Urine Bilirubin Negative Urine Urobilinogen 0.2 Ur Leukocyte Esterase Negative Blood Type Antibody Screen BBK History Checked 06/02/18 06/02/18 06/02/18 16:50 17:11 19:50 WBC 5.5 RBC 4.39 Hgb 13.4 L Hct 39.8 L MCV 90.7 MCH 30.5 MCHC 33.7 RDW 13.4 Plt Count 118 L MPV 9.3 Gran % Lymph % (Auto) Snyder % (Auto) Eos % (Auto) Baso % (Auto) Gran # Lymph # (Auto) Snyder # (Auto) Eos # (Auto) Baso # (Auto) PT INR APTT Sodium 140 Potassium 3.9 Chloride 101 Carbon Dioxide 29 Anion Gap 14 BUN 35 H Creatinine 1.7 H Est GFR ( Amer) 46 Est GFR (Non-Af Amer) 38 POC Glucose (mg/dL) Random Glucose 117 H Calcium 9.3 Total Bilirubin 1.1 AST 29 ALT 26 Alkaline Phosphatase 88 Lactate Dehydrogenase 539 Total Creatine Kinase 96 Troponin I 0.02 Total Protein 7.1 Albumin 3.9 Globulin 3.1 Albumin/Globulin Ratio 1.3 Amylase 82 Lipase 266 Urine Color Urine Appearance Urine pH Ur Specific [place] Urine Protein Urine Glucose (UA) Urine Ketones Urine Blood Urine Nitrate Urine Bilirubin Urine Urobilinogen Ur Leukocyte Esterase Blood Type O POSITIVE Antibody Screen Negative BBK History Checked Patient has bt 06/02/18 06/02/18 06/03/18 19:50 21:18 07:31 WBC RBC Hgb Hct MCV MCH MCHC RDW Plt Count MPV Gran % Lymph % (Auto) Snyder % (Auto) Eos % (Auto) Baso % (Auto) Gran # Lymph # (Auto) Snyder # (Auto) Eos # (Auto) Baso # (Auto) PT INR APTT Sodium 141 Potassium 3.9 Chloride 102 Carbon Dioxide 30 Anion Gap 13 BUN 33 H Creatinine 1.6 H Est GFR ( Amer) 49 Est GFR (Non-Af Amer) 41 POC Glucose (mg/dL) 165 H 137 H Random Glucose 127 H Calcium 9.4 Total Bilirubin AST ALT Alkaline Phosphatase Lactate Dehydrogenase Total Creatine Kinase Troponin I Total Protein Albumin Globulin Albumin/Globulin Ratio Amylase Lipase Urine Color Urine Appearance Urine pH Ur Specific [place] Urine Protein Urine Glucose (UA) Urine Ketones Urine Blood Urine Nitrate Urine Bilirubin Urine Urobilinogen Ur Leukocyte Esterase Blood Type Antibody Screen BBK History Checked Assessment & Plan - Assessment and Plan (Free Text) Assessment: 88 yo WM with HTN, DM, CAD presenting with dark stool. # Dark Stool, possible melena: Hgb 12.9 from last value of 14.3. Repeat Hgb improved to 13.4 without intervention. Vitals stable and JORDAN showed brown stool. States EGD+CSPY many years ago, CSPY ~ 2011 with diverticulosis per pt report. Plan: - Clear Liq Diet - F/u Abd/Pelvis CT - OK to advance diet from GI perspective post CT - Transition PO PPI if Hgb remains stable and no further signs of bleeding - Likely plan on outpatient endoscopies pending clinical course Pt seen and examined with Dr. Galo; please see attestation for further recs/changes. Sylvester Weaver, PGY-4 <Charles Galo - Last Filed: 06/03/18 10:19> Meds - Medications Medications: Current Medications Alprazolam (Xanax) 0.25 mg PO DAILY PRN; Protocol PRN Reason: Anxiety Stop: 06/09/18 20:06 Amlodipine Besylate (Norvasc) 10 mg PO DAILY MARY Bumetanide (Bumex) 1 mg PO DAILY [facility] Sodium Chloride (Sodium Chloride 0.45%) 1,000 mls @ 60 mls/hr IV .[id number] [facility] Last Admin: 06/02/18 21:30 Dose: 60 mls/hr Insulin Human Regular (Humulin R Med) 0 units SC ACHS [facility]; Protocol Last Admin: 06/03/18 07:45 Dose: Not Given Losartan Potassium (Cozaar) 100 mg PO DAILY [facility] Metoprolol Succinate (Toprol Xl) 100 mg PO DAILY [facility] Pantoprazole Sodium (Protonix Inj) 40 mg IVP BID [facility] Last Admin: 06/02/18 21:30 Dose: 40 mg Tamsulosin HCl (Flomax) 0.4 mg PO DAILY [facility] Results - Vital Signs Recent Vital Signs: Last Vital Signs Temp 97.8 F 06/03/18 05:53 Pulse 75 06/03/18 06:20 Resp 20 06/03/18 05:53 BP 184/89 H 06/03/18 06:20 Pulse Ox 94 L 06/03/18 05:53 - Labs Result Diagrams: 06/03/18 07:00 06/03/18 07:00 Labs: Laboratory Results - last 24 hr 06/02/18 06/02/18 06/02/18 16:11 16:11 16:50 WBC 5.2 RBC 4.18 Hgb 12.9 L Hct 37.9 L MCV 90.7 MCH 30.9 MCHC 34.0 RDW 13.6 Plt Count 136 MPV 9.8 Gran % 73.1 H Lymph % (Auto) 18.1 L Snyder % (Auto) 7.1 H Eos % (Auto) 1.5 Baso % (Auto) 0.2 Gran # 3.80 Lymph # (Auto) 0.9 L Snyder # (Auto) 0.4 Eos # (Auto) 0.1 Baso # (Auto) 0.01 PT 11.8 INR 1.03 APTT 23.8 L Sodium Potassium Chloride Carbon Dioxide Anion Gap BUN Creatinine Est GFR ( Amer) Est GFR (Non-Af Amer) POC Glucose (mg/dL) Random Glucose Calcium Total Bilirubin AST ALT Alkaline Phosphatase Lactate Dehydrogenase Total Creatine Kinase Troponin I Total Protein Albumin Globulin Albumin/Globulin Ratio Amylase Lipase Urine Color Light yellow Urine Appearance Clear Urine pH 6.0 Ur Specific [place] 1.010 Urine Protein Negative Urine Glucose (UA) Negative Urine Ketones Negative Urine Blood Negative Urine Nitrate Negative Urine Bilirubin Negative Urine Urobilinogen 0.2 Ur Leukocyte Esterase Negative Blood Type Antibody Screen BBK History Checked 06/02/18 06/02/18 06/02/18 16:50 17:11 19:50 WBC 5.5 RBC 4.39 Hgb 13.4 L Hct 39.8 L MCV 90.7 MCH 30.5 MCHC 33.7 RDW 13.4 Plt Count 118 L MPV 9.3 Gran % Lymph % (Auto) Snyder % (Auto) Eos % (Auto) Baso % (Auto) Gran # Lymph # (Auto) Snyder # (Auto) Eos # (Auto) Baso # (Auto) PT INR APTT Sodium 140 Potassium 3.9 Chloride 101 Carbon Dioxide 29 Anion Gap 14 BUN 35 H Creatinine 1.7 H Est GFR ( Amer) 46 Est GFR (Non-Af Amer) 38 POC Glucose (mg/dL) Random Glucose 117 H Calcium 9.3 Total Bilirubin 1.1 AST 29 ALT 26 Alkaline Phosphatase 88 Lactate Dehydrogenase 539 Total Creatine Kinase 96 Troponin I 0.02 Total Protein 7.1 Albumin 3.9 Globulin 3.1 Albumin/Globulin Ratio 1.3 Amylase 82 Lipase 266 Urine Color Urine Appearance Urine pH Ur Specific [place] Urine Protein Urine Glucose (UA) Urine Ketones Urine Blood Urine Nitrate Urine Bilirubin Urine Urobilinogen Ur Leukocyte Esterase Blood Type O POSITIVE Antibody Screen Negative BBK History Checked Patient has bt 06/02/18 06/02/18 06/03/18 19:50 21:18 07:00 WBC 4.4 L RBC 4.16 Hgb 12.4 L Hct 37.7 L MCV 90.6 MCH 29.8 MCHC 32.9 RDW 13.4 Plt Count 119 L MPV 10.0 Gran % Lymph % (Auto) Snyder % (Auto) Eos % (Auto) Baso % (Auto) Gran # Lymph # (Auto) Snyder # (Auto) Eos # (Auto) Baso # (Auto) PT INR APTT Sodium 141 Potassium 3.9 Chloride 102 Carbon Dioxide 30 Anion Gap 13 BUN 33 H Creatinine 1.6 H Est GFR ( Amer) 49 Est GFR (Non-Af Amer) 41 POC Glucose (mg/dL) 165 H Random Glucose 127 H Calcium 9.4 Total Bilirubin AST ALT Alkaline Phosphatase Lactate Dehydrogenase Total Creatine Kinase Troponin I Total Protein Albumin Globulin Albumin/Globulin Ratio Amylase Lipase Urine Color Urine Appearance Urine pH Ur Specific [place] Urine Protein Urine Glucose (UA) Urine Ketones Urine Blood Urine Nitrate Urine Bilirubin Urine Urobilinogen Ur Leukocyte Esterase Blood Type Antibody Screen BBK History Checked 06/03/18 06/03/18 07:00 07:31 WBC RBC Hgb Hct MCV MCH MCHC RDW Plt Count MPV Gran % Lymph % (Auto) Snyder % (Auto) Eos % (Auto) Baso % (Auto) Gran # Lymph # (Auto) Snyder # (Auto) Eos # (Auto) Baso # (Auto) PT INR APTT Sodium 141 Potassium 3.5 L Chloride 105 Carbon Dioxide 30 Anion Gap 9 L BUN 25 H Creatinine 1.3 Est GFR ( Amer) > 60 Est GFR (Non-Af Amer) 52 POC Glucose (mg/dL) 137 H Random Glucose 118 H Calcium 9.0 Total Bilirubin 1.3 AST 24 ALT 27 Alkaline Phosphatase 79 Lactate Dehydrogenase Total Creatine Kinase Troponin I Total Protein 6.5 Albumin 3.5 Globulin 3.0 Albumin/Globulin Ratio 1.2 Amylase Lipase Urine Color Urine Appearance Urine pH Ur Specific [place] Urine Protein Urine Glucose (UA) Urine Ketones Urine Blood Urine Nitrate Urine Bilirubin Urine Urobilinogen Ur Leukocyte Esterase Blood Type Antibody Screen BBK History Checked Attending/Attestation - Attestation I have personally seen and examined this patient.: Yes I have fully participated in the care of the patient.: Yes I have reviewed all pertinent clinical information: Yes Notes (Text): 06/03/18 10:16 I have seen and examined patient with GI fellow. Agree with above documentation with the following additions. In brief, this is an 88 year old male with history of DM, HTN, CAD, anxiety who presents to hospital with complaint of dark colored stool which began yesterday. Prior to this he was in usual state of health. He reports only one episode of dark stool, no repeat bowel movements since arrival to hospital. He denies abdominal pain, nausea, vomiting, fever/chills, weight loss, or change in bowel habits. He had a colonoscopy 6 years ago which showed diverticular disease as per patient and an EGD over 15 years ago which was reportedly normal. Review of vitals from today shows elevated BP. DM / HTN CAD Anxiety Dark stool - rectal exam performed today shows soft brown stool, no palpable lesions - Liquid diet as tolerated - H/H stable, continue to monitor - Continue with PPI therapy - CT imaging ordered by medical team, follow up results - Patient would benefit from additional outpatient GI follow up. Will continue to monitor patient clinical course.
[2018-06-03 09:08] LABS: HEMOGLOBIN 12.4 g/dL (14.0-18.0); MEAN CELL VOLUME 90.6 fl (80.0-105.0); MEAN CORPUSCULAR HEMOGLOBIN 29.8 pg (25.0-35.0); MEAN CORPUSCULAR HGB CONC 32.9 g/dl (31.0-37.0); RBC 4.16 10^6/uL (3.5-6.1); RED CELL DISTRIBUTION WIDTH 13.4 % (11.5-14.5); WHITE BLOOD COUNT 4.4 10^3/uL (4.5-11.0)
--- NOTE | 2018-06-03 09:10 | CARD ---
APPROVED REPORT Date of service: 06/02/2018 EKG Measurement Heart [id number] <Conclusion> Sinus rhythm with 1st degree AV block Right bundle branch block LVH by voltage No change except the rate is slower
[2018-06-03 09:22] LABS: ALB/GLOB RATIO 1.2 (1.1-1.8); ALBUMIN 3.5 g/dL (3.0-4.8); ALT/SGPT 27 U/L (7-56); AST/SGOT 24 U/L (17-59); BLOOD UREA NITROGEN 25 mg/dL (7-21); GFR NON-AFRICAN AMERICAN 52
[2018-06-03] MEDS ORDERED: OLMESARTAN MEDOXOMIL 40 MG PO SCH (10:00)
[2018-06-03] MEDS ORDERED: Metoprolol Succinate 100 mg XL Tab PO SCH ×2 (10:00→13:24)
[2018-06-03] MEDS ORDERED: BUMETANIDE 1 MG PO SCH (10:00)
[2018-06-03] MEDS ORDERED: Benzocaine/Menthol (Cepacol) Lozenge MT PRN (10:20)
--- NOTE | 2018-06-03 11:08 | RAD ---
Date of service: 06/02/2018 HISTORY: Admission. COMPARISON: 03/31/2018 FINDINGS: LUNGS: No active pulmonary disease. PLEURA: No significant pleural effusion identified, no pneumothorax apparent. CARDIOVASCULAR: Cardiomegaly. No evidence of acute, significant cardiovascular disease. Atherosclerotic calcifications identified primarily aortic arch. OSSEOUS STRUCTURES: No significant abnormalities. VISUALIZED UPPER ABDOMEN: Normal. OTHER FINDINGS: None. IMPRESSION: No active disease. No significant interval change compared to the prior examination(s).
[2018-06-03] MEDS ORDERED: Potassium Chloride 20 mEq ER Tab PO ONE (11:39)
[2018-06-03] MEDS ORDERED: Metoprolol Succinate 50 mg XL Tab PO ONE ×3 (13:30→17:45)
[2018-06-03] MEDS: Sodium Chloride 0.45% 1,000 ML IV SCH (13:31)
--- NOTE | 2018-06-03 13:31 | DS ---
HISTORY OF PRESENT ILLNESS: He is resting comfortably in bed. He is in good spirits. He had black stools for him and also little bit of pause and his heart rate monitor he is on IV fluid, Apresoline, Bumex, Cepacol, Cozaar, Flomax, insulin coverage, potassium replacement, Norvasc, Protonix, IV fluids, metoprolol, Xanax and Zofran. PHYSICAL EXAMINATION: VITAL SIGNS: He has a 97.8 temperature, 82 pulse, 184/89 blood pressure, 180/80 blood pressure. Awaiting to see a pool cleaner 20 respiratory rate, 94% O2 sat on room air. HEENT: Head: Atraumatic, normocephalic. GENERAL: He is very comfortable 88-year-old man who wants to go home. HEART: Regular rate. LUNGS: Decreased breath sounds but clear. ABDOMEN: Soft, nontender. Positive bowel sounds. EXTREMITIES: No edema. He had little bit of nausea, vomiting and black stool that is what brought him in. He is going to be seen by Cardiology, GI already signed off on him and said he can be discharged. I will feed him and waiting for the CT scan of the abdomen and pelvis to be done. If that is normal and if it is okay with Cardiology, I will discharge him this afternoon and change it to an observation level of care. Prashant Bull DO MTDDayna
[2018-06-03] MEDS ORDERED: Iohexol 240 (50 ml) ONE (16:35)
--- NOTE | 2018-06-03 17:45 | CON ---
DATE: 06/03/2018 REASON FOR CONSULTATION: Sinus pauses. HISTORY OF PRESENT ILLNESS: The patient is an 88-year-old male, who has history of hypertension, diabetes mellitus who is admitted because of black stool. The patient denies any chest pain, shortness of breath, or dizziness. The patient is unaware any history of heart attack in the past. The patient was noted on the monitor to have insignificant pauses which are in reality compensatory pause after premature ventricular complexes. The pauses were less or close to two seconds. The patient denies any palpitation or dizziness. PAST MEDICAL HISTORY: Hypertension, history of aortic aneurysm, history of diabetes mellitus, osteomyelitis of the left ankle. ALLERGIES: NO KNOWN ALLERGIES. SOCIAL HISTORY: Nonsmoker, nondrinker. MEDICATIONS: Cozaar 100 mg once a day, Flomax 0.4 mg once a day, Norvasc 10 mg once a day, Protonix 40 mg intravenously twice a day, half normal saline 60 mL an hour, Toprol-XL 100 mg daily. PHYSICAL EXAMINATION GENERAL: The patient is an elderly male, who does not appear to be in acute distress. VITAL SIGNS: Blood pressure 180/80, heart rate 75, temperature 97.8, and respirations 20. HEENT: Normocephalic. CHEST: Clear. HEART: S1, S2 regular. ABDOMEN: Soft. EXTREMITIES: No edema. LABORATORY DATA: Hemoglobin and hematocrit 12.4 and 37.7. White count and platelet count 4.4 and 119,000. Today's SMA-7: Sodium 141, potassium 8.5, chloride 105, CO2 of 30, glucose 118, BUN 25, and creatinine 1.3. PTT is 23.8, INR is 1.03. EKG reveals sinus rhythm with first-degree A-V block, heart rate 71, right bundle-branch block, LVH by voltage. Echocardiogram study performed in October of this year revealed normal ventricular systolic function with normal LVH with diastolic function and moderate tricuspid insufficiency. ASSESSMENT: 1. Insignificant pauses, they are most likely compensatory pauses following premature ventricular contractions. 2. Hypertension. 3. First-degree atrioventricular block and right bundle-branch block on the EKG. 4. Melena. RECOMMENDATIONS: Continue current Bumex mg daily, Cozaar 100 mg once a day, Norvasc 10 mg once a day, reduce Toprol-XL to 50 mg daily. I did request TSH level; however, no further cardiac workup is indicated at this time and the patient can be discharged if cleared from the gastrointestinal point of view to follow up with his manager of financial as an outpatient. Manuel Monet MD
[2018-06-03 18:29] VITALS: BP 129/67; PULSE 70; RESP 19; TEMP 97.5; O2SAT 95
--- NOTE | 2018-06-04 09:16 | CARD ---
APPROVED REPORT Date of service: 06/03/2018 EKG Measurement Heart [id number] <Conclusion> Sinus rhythm with 1st degree AV block Right bundle branch block No change except the voltage is lower V 5,6
--- NOTE | 2018-06-04 09:32 | CT ---
Date of service: 06/03/2018 PROCEDURE: CT Abdomen and Pelvis with contrast HISTORY: black stools COMPARISON: 03/31/2018 CT abdomen and pelvis/aortic dissection protocol. TECHNIQUE: Oral contrast only. Radiation dose: Total exam DLP = 1025.07 mGy-cm. This CT exam was performed using one or more of the following dose reduction techniques: Automated exposure control, adjustment of the mA and/or kV according to patient size, and/or use of iterative reconstruction technique. FINDINGS: LOWER THORAX: Large paraesophageal hiatal hernia. LIVER: Unremarkable. No gross lesion or ductal dilatation. GALLBLADDER AND BILE DUCTS: Unremarkable. PANCREAS: Unremarkable. No gross lesion or ductal dilatation. SPLEEN: Unremarkable. ADRENALS: Unremarkable. No mass. KIDNEYS AND URETERS: Unremarkable. No hydronephrosis. No solid mass. VASCULATURE: Atherosclerotic calcification and mural plaque present. 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 Iliac arteries are non aneurysmal. BOWEL: Unremarkable. No obstruction. No gross mural thickening. APPENDIX: Normal appendix. PERITONEUM: Unremarkable. No free fluid. No free air. LYMPH NODES: Unremarkable. No enlarged lymph nodes. BLADDER: Early distended urinary bladder. No bladder wall or intrinsic abnormalities identified. REPRODUCTIVE: Unremarkable. BONES: No acute fracture. OTHER FINDINGS: Multiple stones identified in the deep pelvis interposed between the rectum, prostate and urinary bladder. Significance/etiology uncertain. IMPRESSION: No acute findings related to/ accounting for the clinical presentation. Cholelithiasis without CT evidence of acute cholecystitis. Additional benign and/or incidental findings described above. No significant interval change compared to the prior examination(s). Concordant results (preliminary interpretation) provided by [facility]. Procedure Completed: 19:09. Preliminary Report: Dictated and Authenticated: 19:55. Final Interpretation: 09:26. June 04, 2018
[2018-06-04] MEDS ORDERED: Metoprolol Succinate 50 mg XL Tab PO SCH ×2 (10:00)
== END 2018-06-03 22:00 | disposition home or self-care (01) ==
LOC: ED 15:02 → ERH 17:38 → INTOOBSV 17:38 → ERH 18:17 → 2RNO 18:35
PROVIDERS: ADMIT Family Medicine; ATTEND Family Medicine
DX: K92.1 Melena (principal); I10 Essential (primary) hypertension; I25.10 Atherosclerotic heart disease of native coronary artery without angina pectoris; E11.9 Type 2 diabetes mellitus without complications; F41.9 Anxiety disorder, unspecified; I44.0 Atrioventricular block, first degree; I45.10 Unspecified right bundle-branch block; Z87.891 Personal history of nicotine dependence
CPT/HCPCS: 36415; 71045; 74176; 80053; 81003; 82150; 82550; 82948; 83615; 83690; 84443; 84484; 85025; 85027; 85610; 85730; 86850; 86900; 87040; 93005; 96361; 96374; 96375; 96376; 99283; C9113; G0378; J0360; J2405; J7030; Q9966

== ENCOUNTER 2018-08-08 21:01 | Emergency (ER) | payer MEDICARE, BC ==
[2018-08-08 21:01] VITALS: PULSE 141; BMI 34.7
[2018-08-08 21:25] VITALS: O2SAT 100
--- NOTE | 2018-08-08 22:12 | ED PDOC ---
Arrival/HPI - History of Present Illness Narrative History of Present Illness (Text): 08/08/18 22:07 88M w/ PMH: CAD, HTN, DM, HLD, Urinary Retnetion/BPH, Anxiety presenting to [facility] ED s/p ground level fall. Pateint reported he tripped over rug at home denies any prodromal symptoms of chest pain, palpitations, sob, denied any LOC prior to during or after fall, patient reported trauma to his head during fall. Is not on any anticoagulation at home. Denies any focal neurologic symptoms at this time; no visual changes reported at this time. No chest pain, sob, abd pain, n/v/d/c, urinary symptoms. Time/Duration: Prior to Arrival Symptom Onset: Sudden, Gradual Symptom Course: Unchanged Quality: Unable to Describe <Hussain Cardenas - Last Filed: 08/09/18 00:05> <Carlos Bergeron - Last Filed: 08/10/18 05:44> - General Chief Complaint: Trauma Past Medical History - Provider Review Nursing Documentation Reviewed: Yes - Infectious Disease Hx of Infectious Diseases: None - Cardiac Hx Cardiac Disorders: Yes Hx Hypertension: Yes Other/Comment: AORTIC ANEURYSM - Pulmonary Hx Respiratory Disorders: No - Neurological Hx Neurological Disorder: No - HEENT Hx HEENT Disorder: No - Renal Hx Renal Disorder: No - Endocrine/Metabolic Hx Endocrine Disorders: Yes Other/Comment: Borderline Diabetes - Hematological/Oncological Hx Blood Disorders: No - Integumentary Hx Dermatological Disorder: No - Musculoskeletal/Rheumatological Hx Musculoskeletal Disorders: Yes Hx Falls: Yes - Gastrointestinal Hx Gastrointestinal Disorders: No - Genitourinary/Gynecological Hx Genitourinary Disorders: Yes Hx Prostate Problems: Yes - Psychiatric Hx Psychophysiologic Disorder: No Hx Substance Use: No - Surgical History Hx Orthopedic Surgery: Yes Other/Comment: L HIP - Anesthesia Hx Anesthesia: Yes Hx Anesthesia Reactions: No Hx Malignant Hyperthermia: No - Suicidal Assessment Feels Threatened In Home Enviroment: No <Hussain Cardenas - Last Filed: 08/09/18 00:05> Family/Social History - Physician Review Nursing Documentation Reviewed: Yes Family/Social History: Unknown Family HX Smoking Status: Former Smoker Hx Alcohol Use: No Hx Substance Use: No <Hussain Cardenas - Last Filed: 08/09/18 00:05> Allergies/Home Meds <Hussain Cardenas - Last Filed: 08/09/18 00:05> <Carlos Bergeron - Last Filed: 08/10/18 05:44> Allergies/Adverse Reactions: Allergies No Known Allergies Allergy (Verified 08/08/18 21:11) Home Medications: Home Meds Medication Instructions Recorded Confirmed Aspirin [Aspir 81] 81 mg PO DAILY 05/25/12 06/02/18 Atorvastatin Calcium [Lipitor] 10 mg PO DAILY 05/25/12 06/02/18 Bumetanide [Bumex] 1 mg PO DAILY 05/25/12 06/02/18 Metoprolol Succinate XL [Toprol XL] 100 mg PO DAILY 05/25/12 06/02/18 ALPRAZolam [Xanax] 0.25 mg PO PRN PRN 11/23/17 06/02/18 Olmesartan Medoxomil [Benicar] 40 mg PO DAILY 11/23/17 06/02/18 [id number] Ethyl Esters 1 GM 1 gm PO BID 11/23/17 06/02/18 [Lovaza] SITagliptin [Januvia] 50 mg PO DAILY 11/23/17 06/02/18 Tamsulosin [Flomax] 0.4 mg PO DAILY 11/23/17 06/02/18 amLODIPine [Norvasc] 5 mg PO DAILY 11/23/17 06/02/18 Amoxicillin/Clavulanate [Augmentin 1 tab PO AC 06/02/18 06/02/18 250 MG-125 MG Tab] Review of Systems - Review of Systems Constitutional: Normal Eyes: Normal ENT: Epistaxis (resolved prior to evaluation ) Respiratory: Normal Cardiovascular: Normal Gastrointestinal: Normal Genitourinary Male: Normal Musculoskeletal: Normal Skin: Other (ecchymosis/ abrasion to Left Eye ) Neurological: Normal Endocrine: Normal Hemo/Lymphatic: Normal Psychiatric: Normal <Hussain Cardenas - Last Filed: 08/09/18 00:05> Physical Exam Vital Signs Reviewed: Yes Vital Signs Temp Pulse Resp BP Pulse Ox 08/08/18 21:25 97.5 F L 98 H 20 163/87 H 100 08/08/18 21:11 97.4 F L 77 17 165/92 H 97 Temperature: Afebrile Blood Pressure: Hypertensive Pulse: Regular Respiratory Rate: Normal Appearance: Positive for: Well-Appearing, Non-Toxic, Comfortable Pain Distress: None Mental Status: Positive for: Alert and Oriented X 3 - Systems Exam Head: Present: Normocephalic, Other (L inferobital ecchymosis w/ minor abrasion ) Pupils: Present: PERRL Extroacular Muscles: Present: EOMI Mouth: Present: Moist Mucous Membranes, Other Nose (Internal): Present: No Active Bleeding, Other (dried blood noted ) Respiratory/Chest: Present: Good Air Exchange, Rales Cardiovascular: Present: Regular Rate and Rhythm, Murmurs, Normal S1, S2 Abdomen: No: Tenderness, Distention Upper Extremity: Present: Normal Inspection Lower Extremity: Present: Normal Inspection, Edema, NORMAL PULSES, Other (Chronic venostatic changes ) Neurological: Present: GCS=15, CN II-XII Intact Skin: Present: Warm, Dry, Normal Color Psychiatric: Present: Alert, Oriented x 3 <Hussain Cardenas - Last Filed: 08/09/18 00:05> Vital Signs Temp Pulse Resp BP Pulse Ox 08/08/18 21:25 97.5 F L 98 H 20 163/87 H 100 08/08/18 21:11 97.4 F L 77 17 165/92 H 97 <Carlos Bergeron - Last Filed: 08/10/18 05:44> Medical Decision Making ED Course and Treatment: 08/08/18 22:06 Impression: 88M s/p fall - most likely mechanical in nature; no neuro/cardiogenic causes suspected; Patient did have trauma to the head no complaints of pain at this time Plan: CBC CMP EKG CT HEAD w/o CXR Rapid Flu Progress Note: 08/08/18 22:38 CT head w/ broken nose no intracranial hemorrhage or skull fracture noted. 08/09/18 00:07 Will DC patient home w/ abx and follow up w/ ENT - RAD Interpretation Radiology Orders: 08/08/18 21:55 HEAD W/O CONTRAST [CT] Stat 08/08/18 22:05 CXR [CHEST PORTABLE] [RAD] Stat <Hussain Cardenas - Last Filed: 08/09/18 00:05> ED Course and Treatment: Impression: Pt seen and evaluated with medical communication specialist. Aware and agree with HPI, clinical findings, plan, and management. Pt, whose past medical history includes CAD, hypertension, diabetes, hyperlipidemia, BPH, and anxiety, presented s/p mechanical fall. Plan: -- CT Head w/o contrast -- EKG -- Chest X-ray -- Rapid influenza -- Labs -- Reassess and disposition 08/08/18 22:59 CT Head: The study shows normal configuration of sella turcica. There are no intra or extra-axial collections. There is no mass effect or midline shift. There is no evidence of hematoma formation. No hydrocephalus is present. No abnormal calcifications are noted. Changes of diffuse cerebellar and cerebral atrophy are noted with symmetrically dilated ventricles and cortical sulci. There are mild bilateral periventricular hypolucencies compatible with white matter ischemic disease. No significant other abnormalities are seen either in the posterior fossa or supratentorial compartment. There is mucosal thickening involving bilateral ethmoid air cells consistent with chronic sinusitis. IMPRESSION: 1. Diffuse age-appropriate cerebellar and cerebral atrophy. 2. Bilateral periventricular hypolucencies compatible with chronic white matter ischemic disease. 3. Sinusitis as above. 4. No evidence of acute intracranial pathology. Electronically signed on Aug 08, 2018 10:42:47 PM EST by: Aries Freed M.D., KAN Certified By [facility] Fellowship Trained MRI and CT Specialist - Lab Interpretations Lab Results: Total Bilirubin 0.7 mg/dL (0.2-1.3) 08/08/18 22:03 AST 27 U/L (17-59) 08/08/18 22:03 ALT 31 U/L (7-56) 08/08/18 22:03 Alkaline Phosphatase 113 U/L (38-126) 08/08/18 22:03 Total Protein 7.3 g/dL (5.8-8.3) 08/08/18 22:03 Albumin 4.2 g/dL (3.0-4.8) 08/08/18 22:03 Globulin 3.1 gm/dL 08/08/18 22:03 Albumin/Globulin Ratio 1.4 (1.1-1.8) 08/08/18 22:03 - RAD Interpretation Radiology Orders: 08/08/18 21:55 HEAD W/O CONTRAST [CT] Stat 08/08/18 22:05 CXR [CHEST PORTABLE] [RAD] Stat <Carlos Bergeron - Last Filed: 08/10/18 05:44> - PA / SAP PORTAL CONSULTANT / Resident Statement ROHAN has reviewed & agrees with the documentation as recorded. ROHAN has examined the patient and agrees with the treatment plan. <Carlos Bergeron - Last Filed: 08/10/18 05:44> Disposition/Present on Arrival - Present on Arrival Any Indicators Present on Arrival: Yes History of DVT/PE: No History of Uncontrolled Diabetes: Yes Urinary Catheter: No History of Decub. Ulcer: No History Surgical Site Infection Following: Orthopedic Procedures - Disposition Have Diagnosis and Disposition been Completed?: Yes Disposition Time: 00:08 Patient Plan: Discharge <Hussain Cardenas - Last Filed: 08/09/18 00:05> <Carlos Bergeron - Last Filed: 08/10/18 05:44> - Disposition Diagnosis: Nasal fracture, Status post fall Disposition: HOME/ ROUTINE Condition: STABLE Discharge Instructions (ExitCare): Preventing Falls, Nose Fracture (DC), Getting Up From a Fall Additional Instructions: Please follow up with ENT doctor within 1 day of discharge Referral for Dr. Etienne ENT has been provided Please follow up with primary care doctor - Dr. Bull within 1 day of discharge Please take amoxicillin 875mg twice a day for 5 days. LU RUVALCABA, thank you for letting us take care of you today. Your provider was Carlos Bergeron MD// Hussain Cardenas DO and you were treated for FALL, ABNORMAL SKIN INTERGITY, FRACTURED NOSE. The emergency medical care you received today was directed at your acute symptoms. If you were prescribed any medication, please fill it and take as directed. It may take several days for your symptoms to resolve. Return to the Emergency Department if your symptoms worsen, do not improve, or if you have any other problems. Please contact your doctor or call one of the physicians/clinics you have been referred to that are listed on the Patient Visit Information form that is included in your discharge packet. Bring any paperwork you were given at discharge with you along with any medications you are taking to your follow up visit. Our treatment cannot replace ongoing medical care by a primary care provider outside of the emergency department. Thank you for allowing the [facility] team to be part of your care today. If you had an X-Ray or CT scan: A Radiologist will review the ED reading if any change in treatment is needed we will contact you. If you had a blood, urine, or wound culture: It will take several days for the results, if any change in treatment is needed we will contact you. If you had an STI test: It will take 48 hours for the results. Please call after 1 week if you have not heard back. Prescriptions: Amoxicillin 875 mg PO BID #10 tablet Referrals: Prashant Bull DO [Primary Care Provider] - Follow up with primary Akash Etienne DO [[facility]] - Follow up with primary Forms: [employer] (Grenadian)
[2018-08-08 22:20] LABS: BASO # 0.02 K/mm3 (0.0-2.0); BASO % 0.5 % (0.0-3.0); EOS # 0.1 (0.0-0.7); EOS % 1.5 % (1.5-5.0); HEMOGLOBIN 13.3 g/dL (14.0-18.0); LYMPH # 0.7 (1.2-3.4); LYMPH % 17.9 % (22.0-35.0); MEAN CELL VOLUME 91.1 fl (80.0-105.0); MEAN CORPUSCULAR HEMOGLOBIN 30.2 pg (25.0-35.0); MEAN CORPUSCULAR HGB CONC 33.2 g/dl (31.0-37.0); MEAN PLATELET VOLUME 9.7 fl (7.0-11.0); MONO # 0.3 (0.1-0.6); MONO % 6.9 % (1.0-6.0); RBC 4.4 10^6/uL (3.5-6.1); RED CELL DISTRIBUTION WIDTH 13.3 % (11.5-14.5); WHITE BLOOD COUNT 4.1 10^3/uL (4.5-11.0)
[2018-08-08 22:27] LABS: ALB/GLOB RATIO 1.4 (1.1-1.8); ALBUMIN 4.2 g/dL (3.0-4.8); CALCIUM 9.7 mg/dL (8.4-10.5)
[2018-08-09 00:22] VITALS: BP 172/89; PULSE 89; RESP 18; TEMP 98.2
--- NOTE | 2018-08-09 08:24 | CT ---
Date of service: 08/08/2018 PROCEDURE: CT HEAD WITHOUT CONTRAST. HISTORY: GLF w/ Trauma to head COMPARISON: None available. TECHNIQUE: Axial computed tomography images were obtained through the head/brain without intravenous contrast. Radiation dose: Total exam DLP = 975.66 mGy-cm. This CT exam was performed using one or more of the following dose reduction techniques: Automated exposure control, adjustment of the mA and/or kV according to patient size, and/or use of iterative reconstruction technique. FINDINGS: HEMORRHAGE: No intracranial hemorrhage. BRAIN: No mass effect or edema. Chronic microvascular changes and mild atrophy. VENTRICLES: Unremarkable. No hydrocephalus. CALVARIUM: Unremarkable. PARANASAL SINUSES: Unremarkable as visualized. No significant inflammatory changes. MASTOID AIR CELLS: Unremarkable as visualized. No inflammatory changes. OTHER FINDINGS: The report concurs with the preliminary [facility] report IMPRESSION: No acute intracranial findings
--- NOTE | 2018-08-09 09:43 | RAD ---
Date of service: 08/08/2018 HISTORY: Crackles/ Cough COMPARISON: Portable chest 06/02/2018. FINDINGS: LUNGS: No active pulmonary disease. PLEURA: No significant pleural effusion identified, no pneumothorax apparent. CARDIOVASCULAR: Calcific atherosclerotic changes are seen related to the thoracic aorta. Cardiomegaly appears stable. No pulmonary vascular congestion. OSSEOUS STRUCTURES: No significant abnormalities. VISUALIZED UPPER ABDOMEN: Large hiatal hernia again identified extending toward the left somewhat. OTHER FINDINGS: None. IMPRESSION: Stable cardiomegaly. No interval acute cardiopulmonary disease. Large hiatal hernia reiterated.
--- NOTE | 2018-08-09 10:03 | CARD ---
APPROVED REPORT Date of service: 08/08/2018 EKG Measurement Heart [id number] <Conclusion> Wide QRS rhythm with occasional premature ventricular complexes Right bundle branch block Possible Lateral infarct, age undetermined Possible Inferior infarct, age undetermined Abnormal ECG
== END 2018-08-09 00:22 | disposition home or self-care (01) ==
LOC: ED 21:01
DX: S02.2XXA Fracture of nasal bones, initial encounter for closed fracture (principal); W01.0XXA Fall on same level from slipping, tripping and stumbling without subsequent striking against object, initial encounter; Y92.009 Unspecified place in unspecified non-institutional (private) residence as the place of occurrence of the external cause; E11.9 Type 2 diabetes mellitus without complications; I10 Essential (primary) hypertension; I25.10 Atherosclerotic heart disease of native coronary artery without angina pectoris; E78.5 Hyperlipidemia, unspecified; N40.0 Benign prostatic hyperplasia without lower urinary tract symptoms; Z87.891 Personal history of nicotine dependence

== ENCOUNTER 2018-08-13 20:20 | Emergency (ER) | payer MEDICARE, BC ==
[2018-08-13 20:21] VITALS: PULSE 141; BMI 34.7
[2018-08-13 20:33] VITALS: TEMP 97.3; O2SAT 98
--- NOTE | 2018-08-13 20:49 | ED PDOC ---
Arrival/HPI - General Chief Complaint: ENT Problem Time Seen by Provider: 08/13/18 20:55 Historian: Patient - History of Present Illness Narrative History of Present Illness (Text): 08/13/18 20:56 88M w/ PMH: CAD, HTN, DM, HLD, Urinary Retention/BPH, Anxiety, who presented last week s/p mechanical fall. Patient is presenting to ED today after having an episode of bloody nose hours prior to arrival. Patient reported he was sitting in direct heat from heater w/o humidifier and noticed streak of blood from L nostril. Patient stated that his grandson help stop the bleeding. Patient denies any trauma to the area. Upon evaluation bleeding had stopped w/ application of direct pressure. Patient still complaining of soreness from R nostril after fall last week. Remainder 12 system ROS is otherwise negative. Time/Duration: Prior to Arrival, 1-3 hours Symptom Onset: Sudden Symptom Course: Improving Quality: Other (bleeding) Past Medical History - Provider Review Nursing Documentation Reviewed: Yes - Infectious Disease Hx of Infectious Diseases: None - Cardiac Hx Cardiac Disorders: Yes Hx Hypertension: Yes Other/Comment: AORTIC ANEURYSM - Pulmonary Hx Respiratory Disorders: No - Neurological Hx Neurological Disorder: No - HEENT Hx HEENT Disorder: No - Renal Hx Renal Disorder: No - Endocrine/Metabolic Hx Endocrine Disorders: Yes Other/Comment: Borderline Diabetes - Hematological/Oncological Hx Blood Disorders: No - Integumentary Hx Dermatological Disorder: No - Musculoskeletal/Rheumatological Hx Musculoskeletal Disorders: Yes Hx Falls: Yes - Gastrointestinal Hx Gastrointestinal Disorders: No - Genitourinary/Gynecological Hx Genitourinary Disorders: Yes Hx Prostate Problems: Yes - Psychiatric Hx Psychophysiologic Disorder: No Hx Substance Use: No - Surgical History Hx Orthopedic Surgery: Yes Other/Comment: L HIP - Anesthesia Hx Anesthesia: Yes Hx Anesthesia Reactions: No Hx Malignant Hyperthermia: No - Suicidal Assessment Feels Threatened In Home Enviroment: No Family/Social History - Physician Review Nursing Documentation Reviewed: Yes Family/Social History: Unknown Family HX Smoking Status: Former Smoker Hx Alcohol Use: No Hx Substance Use: No Allergies/Home Meds Allergies/Adverse Reactions: Allergies No Known Allergies Allergy (Verified 08/13/18 20:31) Home Medications: Home Meds Medication Instructions Recorded Confirmed Aspirin [Aspir 81] 81 mg PO DAILY 05/25/12 06/02/18 Atorvastatin Calcium [Lipitor] 10 mg PO DAILY 05/25/12 06/02/18 Bumetanide [Bumex] 1 mg PO DAILY 05/25/12 06/02/18 Metoprolol Succinate XL [Toprol XL] 100 mg PO DAILY 05/25/12 06/02/18 ALPRAZolam [Xanax] 0.25 mg PO PRN PRN 11/23/17 06/02/18 Olmesartan Medoxomil [Benicar] 40 mg PO DAILY 11/23/17 06/02/18 [id number] Ethyl Esters 1 GM 1 gm PO BID 11/23/17 06/02/18 [Lovaza] SITagliptin [Januvia] 50 mg PO DAILY 11/23/17 06/02/18 Tamsulosin [Flomax] 0.4 mg PO DAILY 11/23/17 06/02/18 amLODIPine [Norvasc] 5 mg PO DAILY 11/23/17 06/02/18 Amoxicillin/Clavulanate [Augmentin 1 tab PO AC 06/02/18 06/02/18 250 MG-125 MG Tab] Review of Systems - Review of Systems Constitutional: Normal Eyes: Normal ENT: Epistaxis Respiratory: Normal Cardiovascular: Normal Gastrointestinal: Normal Genitourinary Male: Normal Musculoskeletal: Normal Skin: Normal Neurological: Normal Endocrine: Normal Hemo/Lymphatic: Normal Psychiatric: Normal Physical Exam Vital Signs Temp Pulse Resp BP Pulse Ox 08/13/18 20:30 97.3 F L 98 H 19 129/83 98 Temperature: Afebrile Blood Pressure: Normal Pulse: Regular Respiratory Rate: Normal Appearance: Positive for: Well-Appearing, Non-Toxic, Comfortable Pain Distress: None Mental Status: Positive for: Alert and Oriented X 3 - Systems Exam Head: Present: Atraumatic, Normocephalic Pupils: Present: PERRL Extroacular Muscles: Present: EOMI Conjunctiva: Present: Normal Mouth: Present: Moist Mucous Membranes Pharnyx: Present: Other (Some bleeding noted in posterior oropharynx ) Nose (External): Present: Atraumatic. No: Abrasion (L nostril with no active bleeding appreciated; mild erythema seen; no deformity appreciated. R nostril w/ scabbing of previous laceration/abrasion) Nose (Internal): Present: Other Neck: Present: Normal Range of Motion Respiratory/Chest: Present: Clear to Auscultation, Good Air Exchange. No: Respiratory Distress, Accessory Muscle Use Cardiovascular: Present: Regular Rate and Rhythm, Normal S1, S2. No: Murmurs Abdomen: No: Tenderness, Distention, Peritoneal Signs Back: Present: Normal Inspection Upper Extremity: Present: Normal Inspection. No: Cyanosis, Edema Lower Extremity: Present: Normal Inspection. No: Edema Neurological: Present: GCS=15, CN II-XII Intact, Speech Normal Skin: Present: Warm, Dry, Normal Color. No: Rashes Psychiatric: Present: Alert, Oriented x 3, Normal Insight, Normal Concentration Medical Decision Making ED Course and Treatment: 08/13/18 21:00 88M presents w/ bleeding of the R nostril at time of evaluation bleeding has resolved; Patient is not on any anticoagulation medications No trauma to area however did sit in path of direct heat Upon examination no actively bleeding vasculature was noted in the nasopharynx Recommend follow up w/ ENT as well as avoidance of dry heat. Disposition/Present on Arrival - Present on Arrival Any Indicators Present on Arrival: No History of DVT/PE: No History of Uncontrolled Diabetes: No Urinary Catheter: No History of Decub. Ulcer: No History Surgical Site Infection Following: Orthopedic Procedures - Disposition Have Diagnosis and Disposition been Completed?: Yes Diagnosis: Bleeding nose Disposition: HOME/ ROUTINE Disposition Time: 20:46 Patient Plan: Discharge Patient Problems: Current Active Problems Problem Status Onset Bleeding nose Acute Condition: STABLE Discharge Instructions (ExitCare): Nosebleeds (DC) Additional Instructions: Please follow up with primary Dr. Bull within 1 day of discharge Please follow up with ENT doctor Please avoid DRY HEAT and utilize humidifiers. LU RUVALCABA, thank you for letting us take care of you today. Your provider was James Ambriz MD, Dr., Nishant DO and you were treated for BLOODY NOSE. The emergency medical care you received today was directed at your acute symptoms. If you were prescribed any medication, please fill it and take as directed. It may take several days for your symptoms to resolve. Return to the Emergency Department if your symptoms worsen, do not improve, or if you have any other problems. Please contact your doctor or call one of the physicians/clinics you have been referred to that are listed on the Patient Visit Information form that is included in your discharge packet. Bring any paperwork you were given at discharge with you along with any medications you are taking to your follow up visit. Our treatment cannot replace ongoing medical care by a primary care provider outside of the emergency department. Thank you for allowing the [facility] team to be part of your care today. If you had an X-Ray or CT scan: A Radiologist will review the ED reading if any change in treatment is needed we will contact you. If you had a blood, urine, or wound culture: It will take several days for the results, if any change in treatment is needed we will contact you. If you had an STI test: It will take 48 hours for the results. Please call after 1 week if you have not heard back. Referrals: Shay Alberts DO [Staff Provider] - Follow up with primary Forms: [employer]vee (Armenian)
[2018-08-13 22:59] VITALS: BP 127/80; PULSE 89; RESP 17
== END 2018-08-13 21:15 | disposition home or self-care (01) ==
LOC: ED 20:20
DX: R04.0 Epistaxis (principal)